=== PATIENT | female | born 2000 | race Caucasian/White ===

== ENCOUNTER 2023-04-05 03:50 | Inpatient (IN) | payer OTHER, MEDICAID, SELFPAY ==
[2023-04-05] VITALS (67 sets, daily range): BP systolic 100–147; BP diastolic 54–81; PULSE 62–150; RESP 14–15; TEMP 36.6–37; O2SAT 96–99; BMI 26.1
[2023-04-05 03:47] LABS: ROM Internal Control Test YES-OK TO RESULT pt. (Internal QC); ROM Patient Test POSITIVE (Negative); Record Kit Lot#, ROM+ K1374
[2023-04-05] MEDS: LACTATED RINGERS 500 ML 999 ML IV (03:55)
[2023-04-05] MEDS: Lactated Ringers 1,000 ML 200 ML IV ×2 (03:55→09:06)
[2023-04-05 04:09] LABS: Absolute Lymphocyte Count 1.95 X10^3/uL (0.83-4.51); Absolute Neutrophil Count 4.5 X10^3/uL (2.0-7.7); Basophil# 0.02 X10^3/uL; Basophil% 0.3 % (0-1); Eosinophil# 0.17 X10^3/uL; Eosinophils% 2.4 % (0-5); Hematocrit 36.2 % (37-47); Hemoglobin 11.5 g/dL (12.0-15.0); Lymphocyte # 1.95 X10^3/ul (0.83-4.51); Lymphocyte % 27.1 % (19-41); Mean Corp Hgb Conc 31.8 g/dL (32-36); Mean Corpuscular Hgb 25.9 pg (27.0-32.0); Mean Corpuscular Volume 81.5 fL (81-99); Mean Platelet Vol. 10.6 fl (6.2-12.0); Monocyte# 0.54 X10^3/uL; Monocyte% 7.5 % (0-10); NRBC Flagged by Analyzer 0 % (0-5); Neutrophil # 4.47 X10^3/uL (2.7-7.7); Neutrophil % 62.1 % (47-70); Platelet Count 257 K/mm3 (150-450); RBC Distribution Width CV 17.7 % (11.6-14.6); Red Blood Count 4.44 M/mm3 (4.2-5.4); White Blood Count 7.2 K/mm3 (4.4-11.0)
[2023-04-05 04:49] LABS: Syphilis Antibodies Non-reactive
[2023-04-05] MEDS: fentaNYL-bupivacaine (epidural) 100 ML BAG EPIDURAL (04:53)
--- NOTE | 2023-04-05 05:44 | NURSING ---
Addendum entered by Linda Hurtado 04/05/23 07:19: DOM talking about his and the pt's job. 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 Original Note: Pt and FOB have plans to place this baby for adoption. Parents already have adoptive parents picked and have meet them. Pt and state adoptive parents are very nice. Pt states adoptive parents will come after baby is born, once they have had time with him. Pt and FOB plan on calling the baby Don but understand that adoptive parents will change name after they go home. Parents seem to be accepting of this decision for adoption. Father of baby seems very on edge and jumpy, also saying odd comments such as I put a baby in her and this just wasn't what we planned. Father of baby states he is a recovering alcoholic. When DOM was out of room for epidural placement, this RN had a private conversation with pt. Pt stated that reason for adoption is because of finances mostly because DOM has only been sober for 5 months and his drinking has ruined him financially. Pt states she has spoken with social services director, case preparer and liner and therapist about this at length and feels its the right thing to do for the baby. DOM has two other children with someone else and is not the father of the pt's 6 year old boy.
--- NOTE | 2023-04-05 08:46 | PCM.HP.OB ---
HPI - General General Date of Admission: 04/05/23 HPI Narrative FAUSTO MCCORMICK, is a 22 F at 39.5 weeks gestation who presents with spontaneous rupture of membranes and contractions. Maternal Data Information JACQUELINE Calculator Estimated Delivery Date Method Current WG Current Estimate 04/07/23 Manual 39w 5d PFSH PFS Medical History (Updated 04/05/23 @ 20:30 by Vianca Rooney CNM) Anxiety Depression Headache Allergy/AdvReac Type Severity Reaction Status Date / Time No Known Allergies Allergy Verified 04/05/23 03:43 Surgical History History of appendectomy Hx of tonsillectomy Social History Smoking Status: Never smoker History Elective abortions Hx Para 1 Spontaneous abortions Hx # Term Pregnancies Ectopic pregnancies Hx # Pregnancies Multiple births # of living children Visit Details OB Flowsheet Initial Weight: Not Recorded Date <del>?</del> EGA Weight BP Urine Prot <del>?</del> Glucose FHR FuHt Pres Dilation <del>?</del> Effaced St Visit Note 04/05/23 <del>?</del> 39w 5d 162 lb 116/71 121/67 113/65 113/77 116/71 120/81 121/71 112/75 113/79 110/72 108/54 109/61 105/59 101/57 104/59 103/58 101/58 100/59 108/67 109/61 114/66 105/57 147/67 129/59 115/55 119/71 114/59 109/59 100/61 104/63 101/64 109/58 105/64 <del>?</del> <del>?</del> ROS Eyes Eyes: Denies blurry vision, change in vision or spots in vision ENT HEENT: Denies dizziness or headache(s) Cardiovascular Cardiovascular: Denies abdominal pain, chest pain or dyspnea Respiratory/Chest Respiratory/Chest: Denies cough, dyspnea, shortness of breath at rest or shortness of breath with exertion Gastrointestinal Gastrointestinal: Denies abdominal pain, diarrhea or vomiting Genitourinary Genitourinary: Denies change in urinary stream, difficulty urinating or dysuria Musculoskeletal Musculoskeletal: Reports none Integumentary Integumentary: Denies rash Neurologic Neurologic: Denies dizziness, headache(s), memory loss or weakness Psychiatric Psychiatric: Reports none Vital Signs Vital Signs Vital Signs: 04/05/23 03:18 04/05/23 03:18 04/05/23 03:17 Temperature Temperature Source Temporal Pulse Rate 80 Blood Pressure 116/71 BP Systolic 116 BP Diastolic 71 Pulse Ox 04/05/23 03:17 04/05/23 04:37 04/05/23 04:37 Temperature 98.0 F Temperature Source Pulse Rate 77 Blood Pressure BP Systolic BP Diastolic Pulse Ox 98 04/05/23 04:42 04/05/23 04:42 04/05/23 04:44 Temperature Temperature Source Pulse Rate 85 Blood Pressure 121/67 H BP Systolic 121 BP Diastolic 67 Pulse Ox 98 04/05/23 04:44 04/05/23 04:47 04/05/23 04:47 Temperature Temperature Source Pulse Rate 75 70 Blood Pressure BP Systolic BP Diastolic Pulse Ox 96 04/05/23 04:48 04/05/23 04:48 04/05/23 04:52 Temperature Temperature Source Pulse Rate 66 71 Blood Pressure 113/65 BP Systolic 113 BP Diastolic 65 Pulse Ox 04/05/23 04:52 04/05/23 04:54 04/05/23 04:54 Temperature Temperature Source Pulse Rate 74 Blood Pressure 113/77 BP Systolic 113 BP Diastolic 77 Pulse Ox 97 04/05/23 04:58 04/05/23 04:58 04/05/23 04:57 Temperature Temperature Source Pulse Rate 81 Blood Pressure 116/71 BP Systolic 116 BP Diastolic 71 Pulse Ox 98 04/05/23 05:03 04/05/23 05:03 04/05/23 05:02 Temperature Temperature Source Pulse Rate 75 Blood Pressure 120/81 H BP Systolic 120 BP Diastolic 81 Pulse Ox 98 04/05/23 05:07 04/05/23 05:07 04/05/23 05:08 Temperature Temperature Source Pulse Rate 76 Blood Pressure 121/71 H BP Systolic 121 BP Diastolic 71 Pulse Ox 98 04/05/23 05:08 04/05/23 05:12 04/05/23 05:12 Temperature Temperature Source Pulse Rate 74 80 Blood Pressure BP Systolic BP Diastolic Pulse Ox 99 04/05/23 05:14 04/05/23 05:14 04/05/23 05:18 Temperature Temperature Source Pulse Rate 67 Blood Pressure 112/75 113/79 BP Systolic 112 113 BP Diastolic 75 79 Pulse Ox 04/05/23 05:18 04/05/23 05:17 04/05/23 05:22 Temperature Temperature Source Pulse Rate 66 62 Blood Pressure BP Systolic BP Diastolic Pulse Ox 99 04/05/23 05:22 04/05/23 05:24 04/05/23 05:24 Temperature Temperature Source Pulse Rate 63 Blood Pressure 110/72 BP Systolic 110 BP Diastolic 72 Pulse Ox 99 04/05/23 05:27 04/05/23 05:27 04/05/23 05:30 Temperature Temperature Source Pulse Rate 72 Blood Pressure 108/54 L BP Systolic 108 BP Diastolic 54 Pulse Ox 98 04/05/23 05:30 04/05/23 05:34 04/05/23 05:34 Temperature Temperature Source Pulse Rate 72 65 Blood Pressure 109/61 BP Systolic 109 BP Diastolic 61 Pulse Ox 04/05/23 05:39 04/05/23 05:39 04/05/23 05:43 Temperature Temperature Source Pulse Rate 67 Blood Pressure 105/59 L 101/57 L BP Systolic 105 101 BP Diastolic 59 57 Pulse Ox 04/05/23 05:43 04/05/23 05:48 04/05/23 05:48 Temperature Temperature Source Pulse Rate 66 68 Blood Pressure 104/59 L BP Systolic 104 BP Diastolic 59 Pulse Ox 04/05/23 05:53 04/05/23 05:53 04/05/23 05:59 Temperature Temperature Source Pulse Rate 71 Blood Pressure 103/58 L 101/58 L BP Systolic 103 101 BP Diastolic 58 58 Pulse Ox 04/05/23 05:59 04/05/23 06:04 04/05/23 06:04 Temperature Temperature Source Pulse Rate 71 68 Blood Pressure 100/59 L BP Systolic 100 BP Diastolic 59 Pulse Ox 04/05/23 06:09 04/05/23 06:09 04/05/23 06:14 Temperature Temperature Source Pulse Rate 79 Blood Pressure 108/67 109/61 BP Systolic 108 109 BP Diastolic 67 61 Pulse Ox 04/05/23 06:14 04/05/23 07:19 04/05/23 07:19 Temperature Temperature Source Pulse Rate 79 79 Blood Pressure 114/66 BP Systolic 114 BP Diastolic 66 Pulse Ox 04/05/23 07:19 04/05/23 07:19 Temperature 98.2 F Temperature Source Temporal Pulse Rate Blood Pressure BP Systolic BP Diastolic Pulse Ox Weight Weight: 162 lb Body Mass Index (BMI) 26.1 Physical Exam Const alert and no apparent distress General Appearance: cooperative Orientation / Consciousness: awake Exam Limitations: no limitations HEENT normocephalic Eyes General Eye: normal appearance of both eyes Neck full ROM Chest inspection of chest normal Resp normal respiratory effort and normal air movement Effort and Inspection: symmetric chest movement Auscultation: clear to auscultation bilaterally Cardio regular rate GI soft to palpation, non-tender and non-distended Inspection: and other Back/Spine normal ROM Extremity full ROM, normal capillary refill and no calf tenderness Skin no rashes or lesions noted Neuro oriented x3 and CN's II-XII intact bilaterally Psych mental status grossly normal Labs Labs Labs: Blood Type O POSITIVE Antibody Screen NEGATIVE Hct 36.2 % (37-47) L Hgb 11.5 g/dL (12.0-15.0) L Syphilis Total Ab Non-reactive GBS positive Assessment & Plan (1) 39 weeks gestation of : (2) Spontaneous rupture of amniotic membranes: (3) with adoption planned: (4) Positive GBS test: (5) Depression: (6) Anxiety: (7) Chronic headache: PLAN: Plan Admit to labor and delivery Routine labs Start IV and run fluids per orders GBS positive- Start PCN IV and give every 4 hours until delivery Pain medication/epidural when indicated Anticipate Dr. Jon admitted patient- I am assuming management - Dr. Carrington is collaborating physician
[2023-04-05] MEDS: Penicillin G 3,000,000 Units 50 ML 100 UNITS IV (09:06)
[2023-04-05] MEDS: Oxytocin 10 UNITS/ML Vial IM (10:07)
[2023-04-05] MEDS: Oxytocin 15 Units/NS 250ml 15 UNITS/250 ML IV.SOLN 83 UNITS IV (10:07)
--- NOTE | 2023-04-05 10:30 | EX.PCM.OBRPT ---
Assessment & Plan (1) (spontaneous vaginal delivery): (2) Perineal laceration, second degree, delivered: (3) with adoption planned: (4) Anxiety: (5) Depression: (6) Chronic headache: Maternal Data Information JACQUELINE Calculator Estimated Delivery Date Method Current WG Current Estimate 04/07/23 Manual 39w 5d Vaginal Delivery Maternal Presentation Maternal Presentation: Spontaneous Rupture of Membranes Maternal Presentation: at 39.5 weeks gestation with spontaneous rupture of membranes and contractions. Type of Induction: Pitocin (Augmentation) Operative Information Date of Procedure: 04/05/23 Pre-Operative Diagnosis: Term gestation, Spontaneous rupture of membranes Post-Operative Diagnosis: , live male infant Surgery / Procedure Performed: Spontaneous Vaginal Delivery Type of Anesthesia: Epidural Drain: [place]me[place] to straight drain Estimated Blood Loss: 250 Time of Delivery: 10:05 Findings Description of Procedure: Patient progressed to complete dilation. Provided bedside support during pushing. With good maternal effort, head delivered followed immediately by anterior shoulder and remainder of infant body with minimal traction. Vigorous male placed on maternal abdomen and attended to by nursing staff. Pitocin IM x 1 given for active management of the third stage of labor. 3 vessel cord clamped and cut by patient after delay and infant placed skin to skin with patient. Cord blood collected and sent. Pitocin IV running. Placenta delivered spontaneously and intact. Second degree laceration repaired in usual fashion with Vicryl 3-0 rapid. Hemostasis obtained. Fundus firm and 1 below U. EBL 250 cc, APGARS 8/9. Patient has plans for adoption and is working with [facility] adoption services. Dr. Carrington notified of delivery. Presentation: Vertex Amniotic Membrane Rupture Type: Spontaneous Time of Membrane Rupture: 129 Amniotic Fluid Description: Clear Placental Delivery Description: Spontaneous Placenta Disposition: [facility] Cord Vessel Description: 3 Vessels Cord Entanglement: None A Gender: Male (1 minute): 8 (5 minute): 9 Delayed Cord Clamping: Yes Post Vaginal Delivery Medications Given After Delivery: IV Pitocin and IM Pitocin Episiotomy Description: None Laceration: 2nd degree Complication Complications: None
[2023-04-05] MEDS: Naproxen 500 MG Tablet PO ×2 (11:59→20:21)
--- NOTE | 2023-04-05 15:00 | CASEMGMT ---
Social Work Assessment Labor and Delivery Unit Patient Address: Patient phone: Date of Referral: 04.05.2023 Time of Referral: 411 Referred By: Danna Wall Date of Intervention: 04.05.2023 Time of Intervention: Approximately [id number] Reason for Referral: Father of baby (FOB) history of alcohol use issues. Mother of baby (MOB) and FOB making an adoption plan for the baby. History obtained from: MOB and medical records. FOB present for a short time and did participate during that time. Household composition: MOB, MOB's 20 year old sister Steph, and MOB's 6 year old son. MOB reports home situation is safe and has no concerns. Patient's parent/guardian status: MOB is a 24 year old single female, involved with the FOB Surinder Varner who is age 39 for the last year and a half. MOB and FOB are reported as together but do not live together. MOB denies any domestic violence or safety concerns with the FOB. Infant is the first child for MOB and FOB together. to be named Don, born on 04.[birth year]. MOB as a son Wale from a prior relationship. Wale is 6 years old. FOB reports to have a 12 year old and a 3.5 year old. *MOB and FOB do report intent to make an adoption plan for infant Don. Medical History: MOB is G2, P1 to 2 after delivering Don. care started later at 17 weeks and visit were spotty until 30 weeks when MOB started to attend visits regularly. weighted 9 pounds 4 ounces at . Apgars 8 and 9 at 1 and 5 minutes of life. MOB providing breast milk to while infant is in the hospital.. Educational Status: MOB reports to have a college degree in history and education. No concerns with literacy. FOB is also reportedly college educated. 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 Transportation: MOB reports to drive and has no concerns. Programs/Agencies Involved: [facility] adoption [facility], Taisha Rhodes is the adoption network security officer working with this family. JFS for medical coverage. Shelli Villegas at [employer]. Children Services/Legal Issues: None reported. Behavioral Health Issues: Mental Health History: MOB reports history of depression and anxiety. Denies any history of SI or attempts. No reports of harm to others. Reports some trauma history growing up, describing that MOB's mother a Mean drunk and that none of the children have fully forgive for this. MOB reports has been in and out of counseling since the age of 8. Reports just established counseling again during this , and intend to maintain in the timeframe. Substance Use History: Denies any substance use history for self. Drug Screens: None noted. Family/Social Stressors: Unplanned , with MOB considering all options available. MOB did decide on making an adoption plan, and reports financial stress/stability issue as primary reason for making the adoption plan. FOB with reported 15 year history of alcohol use issues, including past DUI's, gambling issues when drinking and recent financial hardship due to gambling issues. FOB has been to inpatient rehab during this and MOB reports FOB is now 4 months sober. Support Systems: MOB reports to have good support from MOB's grandmother, sister Steph, and also the FOB. Reports Brayden plans to stay with MOB for a week or so after leaving the hospital, so as to provide support. MOB's sister Avril Mackenzie is coming in from [place] in a few weeks to visit as well. ASSESSMENT: Met with MOB an FOB in room, introducing to self and social work role. FOB sleepy but woke up and participated in conversation. MOB appearing reserved with FOB, and uncertain initially want relational status was. Asked FOB to leave for private conversation, which FOB agreed to and stated I understand. MOB more talkative, though affect remind the same, mostly constricted. MOB was attentive to , held baby the entirety of social work visit, and appeared to be bonding as evidenced by finger tipping, smiling at and talking to baby. MOB openly cried during SW visit, mostly when discussing plan to make an adoption plan, and feeling as if this is the only viable option to allow for infant to have the things he needs in life. This information writer gently broached how long MOB wants to stay hospital, as well as whether MOB has thought about day of discharge and what this will look like as far as handing the baby off. MOB became quite emotional during these parts of discussion, indicating would like to stay as long as possible with the baby and that can't imagine right now how will say goodbye/leave baby when leaving the hospital. While MOB indicated these feelings, also indicates feeling that adoption is MOB's only choice. Much emotional support, supportive listening and reflection offered to the MOB. Let MOB know staff is here to support the MOB, and FOB, during hospital stay. MOB expressed appreciation for support, and expressed feeling that staff has been kind, supportive and caring. Adoption Planning: MOB is working with [facility] adoption. This information writer was in communication with [facility] prior to delivery. Copy of plan, provided by [facility] on the chart. MOB signed a release of information to [employer] [facility] for the baby's record. MOB also signed the [facility] Adoptive Infant checklist, which is placed in MOB's and Infant's chart. MOB reports has met, and had dinner with the prospective adoptive parents; knows first and last names. MOB reports plan for semi-open to open adoption. MOB reports plan to let the prospective adoptive parents visit, but does not want them to spend the night. PLAN:Social work to follow and assist for support and adoption planning. Plan to make contact with Taisha at [facility], as to when adoption paperwork can be signed. No other services requested or indicated. -ALICIA Moreno, PILOT CAN ROUTER
[2023-04-05] MEDS: Benzocaine/Lanolin/Aloe Vera 1 SPRAY EACH TOPICAL (16:55)
[2023-04-05] MEDS: Acetaminophen 500 MG Tablet 1000 MG PO (16:56)
--- NOTE | 2023-04-05 18:00 | CASEMGMT ---
Social Work Labor and Delivery Unit While meeting with mother of baby (MOB) today: MOB signed release of information for [facility] adoption agency for the . [facility] adoptive and checklist completed with MOB's input. Copy of plan provided by [facility] [employer], along with hospital paperwork placed on both MOB's and 's charts. Release of information MOB signed with [facility] also placed on MOB's chart. Collaboration with Taisha Shankar from [facility] adoption agency ([phone]) and updated to how mother of baby (MOB) and infant are doing since delivery, and regarding MOB's reported intent to continue with adoption plan. Acknowledged however that MOB appears to be having heightened emotions regarding the reality of moving forward with the plan. Discussed timeframe for custody paperwork to be signed. Taisha to discuss further with the MOB. Received call back from Taisha at the adoption agency who reports plan for signing of custody paperwork on 04/08/2023. MOB does want to continue being present with the infant for the duration of hospital stay. Spoke with MOB in room and confirmed MOB's intent with plan for adoption. MOB does also indicate appreciation for being able to have time with the infant before having to make decision about signing paperwork. Emotional support provided. Provided MOB with information on mood and anxiety disorders and several birthmother support groups and retreat information for after care support in the community. Updated OB provider, bag turner, and nursing staff. Updated charge entry that should MOB decide to want to leave the hospital this weekend, to call social work as will need to ensure that appropriate paperwork is signed before MOB leaves the hospital. 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 Social work will continue to follow and assist. -SUMIT Moreno, TERMITE TREATER *This note was generated with Cytherisation software. It may contain incorrect words, spelling, and punctuation that were not noted in review of the chart prior to signing*
[2023-04-06] VITALS (8 sets, daily range): BP systolic 107–116; BP diastolic 54–70; PULSE 62–83; RESP 15–18; TEMP 36.6–36.8; O2SAT 96–98
--- NOTE | 2023-04-06 09:18 | PCM.PN.OB ---
Subjective Subjective Patient seen at bedside. Skin to skin with . with minimal support. Ambulating and has voided but feels like it is difficult for bladder to relax. Denies pain. Reports being unsure about adoption plan at this time. Support provided Objective Data Objective Data Vital Signs: Vital Signs Temp Pulse Resp BP Pulse Ox O2 Del Method 98 F 81 16 116/64 96 Room Air 04/06/23 07:42 04/06/23 07:42 04/06/23 07:42 04/06/23 07:42 04/06/23 07:42 04/06/23 07:42 Oxygen Delivery Method Room Air Weight: 162 lb Body Mass Index (BMI) 26.1 Intake & Output: Intake and Output for Last 24 Hours 04/04/23 04/05/23 04/06/23 23:59 23:59 23:59 Intake Total 2101.67 / 2101.67 Output Total 1000 / 1000 Balance 1101.67 / 1101.67 Lab / Micro Data Result Diagrams: 04/05/23 03:55 ROS Eyes Eyes: Denies blurry vision, change in vision or spots in vision ENT HEENT: Denies dizziness or headache(s) Cardiovascular Cardiovascular: Denies abdominal pain, chest pain or dyspnea Respiratory/Chest Respiratory/Chest: Denies cough, dyspnea, shortness of breath at rest or shortness of breath with exertion Gastrointestinal Gastrointestinal: Denies abdominal pain, diarrhea or vomiting Genitourinary Genitourinary: Denies change in urinary stream, difficulty urinating or dysuria Musculoskeletal Musculoskeletal: Reports none Integumentary Integumentary: Denies rash Neurologic Neurologic: Denies dizziness, headache(s), memory loss or weakness Physical Exam Const alert and no apparent distress General Appearance: cooperative and comfortable Exam Limitations: no limitations HEENT normocephalic Eyes General Eye: normal appearance of both eyes Neck full ROM General: normal visual inspection Chest Chest: symmetrical chest wall rise Resp normal respiratory effort and normal air movement Effort and Inspection: symmetric chest movement Auscultation: clear to auscultation bilaterally Cardio regular rate and regular rhythm GI normal to inspection, nondistended, normoactive bowel sounds Back/Spine normal ROM Extremity full ROM and no calf tenderness General Extremity: normal exam except as noted Skin no rashes or lesions noted Neuro CN's II-XII intact bilaterally Psych mental status grossly normal Assessment & Plan (1) Perineal laceration, second degree, delivered: (2) (spontaneous vaginal delivery): (3) with adoption planned: (4) Care and examination of lactating mother: PLAN: Plan PPD 1 Routine care Ambulate and voiding today Pain control Emotional support D/C tomorrow and will be hotel status- baby not discharged until Saturday
[2023-04-06] MEDS: Acetaminophen 500 MG Tablet 1000 MG PO (17:26)
[2023-04-07 01:19] VITALS: BP 100/59; PULSE 61; O2SAT 96
[2023-04-07 01:20] VITALS: BP 100/59; PULSE 62; RESP 16; O2SAT 96
[2023-04-07 07:37] VITALS: BP 112/64; PULSE 73; RESP 16; TEMP 37.4; O2SAT 96
--- NOTE | 2023-04-07 11:02 | PCM.PN.OB ---
Subjective Subjective Patient seen at bedside. Ambulating and voiding without difficulty. Denies headache, dizziness, CP, or SOB. Lochia decreasing. with minimal support. Denies pain. Patient still contemplating adoption. Objective Data Objective Data Vital Signs: Vital Signs Temp Pulse Resp BP Pulse Ox O2 Del Method 99.3 F H 73 16 112/64 96 Room Air 04/07/23 07:37 04/07/23 07:37 04/07/23 07:37 04/07/23 07:37 04/07/23 07:37 04/07/23 07:37 Oxygen Delivery Method Room Air Weight: 162 lb Body Mass Index (BMI) 26.1 Intake & Output: Intake and Output for Last 24 Hours 04/05/23 04/06/23 04/07/23 23:59 23:59 23:59 Intake Total 2101.67 / 2101.67 Output Total 1000 / 1000 Balance 1101.67 / 1101.67 Lab / Micro Data Result Diagrams: 04/05/23 03:55 ROS Eyes Eyes: Denies blurry vision, change in vision or spots in vision ENT HEENT: Denies dizziness or headache(s) Cardiovascular Cardiovascular: Denies abdominal pain, chest pain or dyspnea Respiratory/Chest Respiratory/Chest: Denies cough, dyspnea, shortness of breath at rest or shortness of breath with exertion Gastrointestinal Gastrointestinal: Denies abdominal pain, diarrhea or vomiting Genitourinary Genitourinary: Denies change in urinary stream, difficulty urinating or dysuria Musculoskeletal Musculoskeletal: Reports none Integumentary Integumentary: Denies rash Neurologic Neurologic: Denies dizziness, headache(s), memory loss or weakness Physical Exam Const alert and no apparent distress General Appearance: cooperative and comfortable Exam Limitations: no limitations HEENT normocephalic Eyes General Eye: normal appearance of both eyes Neck full ROM General: normal visual inspection Chest Chest: symmetrical chest wall rise Resp normal respiratory effort and normal air movement Effort and Inspection: symmetric chest movement Auscultation: clear to auscultation bilaterally Cardio regular rate and regular rhythm GI normal to inspection, nondistended, normoactive bowel sounds Back/Spine normal ROM Extremity full ROM and no calf tenderness General Extremity: normal exam except as noted Skin no rashes or lesions noted Neuro CN's II-XII intact bilaterally Psych mental status grossly normal Assessment & Plan (1) Care and examination of lactating mother: (2) Perineal laceration, second degree, delivered: (3) (spontaneous vaginal delivery): (4) Depression: (5) Anxiety: (6) with adoption planned: PLAN: Plan PPD 2 Routine care support Emotional support provided- patient unsure of adoption plan Start Zoloft 50 mg PO daily- patient has a history of success while taking Zoloft for depression D/C home but remain hotel status at this time Social work involved and will be coming to speak with patient today
--- NOTE | 2023-04-07 11:15 | PCM.DC ---
Discharge Instructions Diet Discharge Diet: No restrictions Activity Discharge Activity: Return to Normal Activity, May Shower and May Take a Tub Bath May resume sexual activity in: 4-6 weeks Weight Bearing Status: Weight bearing as tolerated Dressing / Incision Call your doctor if you observe: Fever of 101 or Higher, Inability to urinate, Using more than 1 pad per hour, Shortness of breath, Dizziness, Swelling in the ankles, Chest pain, Calf discomfort and Uncontrolled pain Follow Up Care Please Follow Up With: Vianca Rooney CNM When: Within 10 days Test Results: Test results from this visit will be discussed in further detail at your follow-up appointment, if applicable. Discharge Plan Admission Admit Date/Time: 04/05/23 03:50 Primary Reason for Your Visit: Labor and Delivery Attending Provider: Vianca Rooney Primary Care Provider: JOSE ANTNOIO SCOTT Discharge Orders/Prescriptions Prescriptions: New sertraline 50 mg Tablet 50 mg PO DAILY Qty: 30 2RF Referrals / Follow Up: JOSE ANTONIO SCOTT [Other] Vianca Rooney CNM [Med Staff - [facility] Practice Prof] - Disposition Disposition (needs filled in before D/C Order can be placed): Home, Self Care
[2023-04-07] MEDS: Sertraline 50 MG Tablet PO (11:59)
[2023-04-07 13:52] VITALS: BP 114/63; PULSE 80; RESP 16; TEMP 37.1; O2SAT 98
[2023-04-07 13:53] VITALS: PULSE 79; O2SAT 96
--- NOTE | 2023-04-07 14:30 | NURSING ---
Phone call placed to Wes Akins-social work on update of pt status.
[2023-04-07] MEDS: Naproxen 500 MG Tablet PO (17:35)
--- NOTE | 2023-04-07 17:51 | NURSING ---
Addendum entered by Giovanna Contreras 04/07/23 19:33: At 1830 went into pts room, pt seemed off. Tearful. RN sat on bed with patient and asked what was going on. Pt made list of what she would need to bring the babe home. States that she just feels overwhelmed and wants to make the right choice. Pt told RN that she looked at babkeven and told him that he was going to be going with some other people tomorrow and that he needed and would be strong, and babe smiled. Then she said she just felt like no one will ever love him more then her. She just held babe tighter and he smiled again. Support offered and pt very tearful. Pt very thankful for RN's time today of sitting with her and talking with her. RN then changed the subject to Wale and pt talked about him for the next 20 minutes. 1919- Brayden arrived on unit. 1939 Brayden leaves the unit. This RN in to see if pt is okay. Pt states that Brayden's not coming back and that he's upset with her. She said that he told her she was being unfair and manipulating him and that he can't be around her. and then left. Pt states that he wont be back tonight. Original Note: This RN spent significant amount of shift in with pt and babe. Pt alone all day and very tearful. Started this morning sitting with pt and talking. Tearful with instructor bridge exam with mention of adoption taking place on 04/08/23. RN sat with pt for 45 minutes talking about how she was feeling. Pt states repetitively that she just doesn't know how she can leave without him. States that she wants him to have a good life and that she doesn't want to be selfish and not give him to the adoptive parents because of her own issues. When asked about Brayden, she stated that he left last night and she doesn't know if/when he is coming back. Explained that they got in an argument about her having doubts of the adoption. Pt remains tearful. This RN offered support- pt receptive. When RN asked about pts support system she commented that she has support from her sisters, Avril Mackenzie and Steph, and her grandmother. Pt states that her sister Avril Mackenzie offered to take baby Don if Landy didnt think she could raise him but didnt want to give him up for adoption, pt was appreciative of that and said that Avril Mackenzie's even emailed her and said that they would do whatever she needed them to. Avril Mackenzie also told Steph that she would send her some money to go by a carseat for the baby if Landy kept the baby. Pt also voiced concerns of having to do this alone and states that she knows Brayden will likely not help her with raising the baby. Later in the day, pt called tax attorney about her feelings on the adoption. When tax attorney asked her when you leave the hospital, do you see yourself leaving with your baby or not? She answered with leaving with him and tax attorney said that is okay. Caseworkers have been involved per Landy. She was told the adoptive parents wanted her to know that they don't want her to feel any pressure or feeling like she's disappointing them if she doesn't go through with the adoption. Pt states that made her feel better and gave her some peace. Also states that Brayden will be coming back at some point but doesn't know when. Pt still not voicing going through with adoption or keeping babe. Just states that she wants more. Pt scored 17/19 of PHQ9, Viki was made aware and pt was not having any suicidal thoughts. Handouts given.
--- NOTE | 2023-04-08 17:30 | CASEMGMT ---
Social Work Labor and Delivery Unit This chief writer received phone call on 04.07.23 from GHULAM Heredia regarding update on how mother of baby (MOB) was doing regarding intent for adoption planning. RN reports MOB with heightened emotions throughout the day, and vacillating about intent on moving forward with adoption plan. RN also reports MOB's PHQ-9 was a score of 17. RN reports antidepressant being started for MOB. MOB denied any thoughts of suicide or self harm. Interventions occurring on 04.08.23,intermittenly throughout the day starting at approximately 0900: MOB's adoption car mover, Taisha Rhodes from [facility] to hospital to meet with MOB, to discuss plans. This chief writer updated Taisha to how MOB was doing, and that baby is ready for discharge. Taisha to MOB's room to discuss and then this chief writer called into MOB's room. MOB shared with this chief writer decision to forego adoption plan and take baby home to parent. MOB appearing relaxed when relaying decision to this chief writer, smiling, holding baby, and appearing to bradford with baby. Briefly discussed with MOB that can gather some resources for MOB for [facility] where MOB lives. Briefly touched on [facility] and [facility] [place]. MOB reports to have some baby items in storage. Updated nursing staff and honey producer. Me with MOB and reviewed PHQ9 depression screening. MOB reports has restarted antidepressant and plans to remaining this. MOB is already in counseling with Shelli Villegas, and intends to remain in counseling. MOB acknowledges heightened emotions in relation to struggle about plan for adoption versus parenting, and feeling relief in decision to parent. Back to MOB's room to check in and MOB on phone with Taisha (on speakerphone). MOB appearing tearful. Sat down with MOB, joining conversation. MOB holding baby, and discussed with Taisha and this chief writer questioning decision to parent. MOB verbalized various reasons for decision to make an adoption plan, including concern that not feeling equipped to parent an infant alone, and that current life situation is sometimes a struggle financially. MOB voiced the prospective adoptive parents would be able to provide in all ways, as well as would be able to show what it means to have two parents who love each other and can model such to the . Much supportive listening offered, emotional support that this is not an easy decision. After MOB talked though thoughts, MOB voiced that wants to sign temporary custody to [facility] for adoption planning. Note, some baby items for home going had been delivered to MOB's room, donated to MOB. This chief writer removed donated items from the room, so as to decrease any heightened emotions associated with items. Updated nursing. Received call from repair department supervisor at [facility], Chloé Fisher. Chloé collaborated with this chief writer, inquiring whether this chief writer felt MOB understood the next steps after temporary custody would be to sign permanent custody. Discussed that MOB seems to understand the process, but adjusting and coming to terms with the reality of things is another matter. Per Chloé, due to MOB having so many varying emotions, [facility] staff (including supervisors) will be discussing with MOB her intention and wishes. Chloé reports [facility] will call this chief writer after meeting for an update. Updated nursing staff, encouraging that discussion from this point be focused on care of baby rather than MOB's decision making, as MOB does appear to be having some varying emotions and thoughts on her decision making. This chief writer received notice from nursing, after discharged, that MOB decided to take baby home with a plan to care for baby for 48 hours, then make final decision. Plan: discharged home with MOB. [facility] Ad[facility] following in the community. MOB does have supports in place for mental health/ depression via medication and counseling. -ALICAI Moreno, DIRECTOR OF INDUSTRIAL RELATIONS
== END 2023-04-07 19:00 | disposition home or self-care (01) | DRG 807 ==
LOC: WPOUT 03:52 → WP 03:52
PROVIDERS: Obstetrics & Gynecology; Admitting Provider Advanced Practice Midwife; Referring Provider Advanced Practice Midwife; Visit Provider Advanced Practice Midwife
DX: O70.1 Second degree perineal laceration during delivery (principal); Z37.0 Single live birth; O99.344 Other mental disorders complicating childbirth; F32.A Depression, unspecified; F41.9 Anxiety disorder, unspecified; Z3A.39 39 weeks gestation of pregnancy
CPT/HCPCS: 59025; 59050; 84112; 85025; 86780; 86850; 86900; 86901; 99221; J7120; G0378

== ENCOUNTER 2023-07-25 10:22 | Day surgery (SDC) | payer OTHER, MEDICAID, SELFPAY ==
--- NOTE | 2023-07-18 12:25 | PCM.HP.BLA ---
History and Physical Date of Admission: 07/26/23 HPI: The patient is a 23 year old female presenting for pre-operative visit. She is scheduled for laparoscopic bilateral salpingectomy, for sterilization on 07/25/23. Procedure discussed along with risks, benefits and complications. Other alternatives discussed for management. Consent form signed? Yes. ? ? PAST MEDICAL HISTORY PAST MEDICAL HISTORY Diagnosis Date ? Anxiety and depression ? ? Chlamydia ? ? treated ? Chronic headaches ? ? Closed dislocation of patella 06/29/2010 ? Closed fracture of one or more phalanges of foot 12/12/2011 ? Eating disorder, unspecified 09/29/2009 ? Insomnia 06/11/2012 ? Other closed fractures of distal end of radius (alone) 11/30/2010 ? Unspecified asthma(493.90) ? ? albuterol inhaler prn ? ? PAST SURGICAL HISTORY PAST SURGICAL HISTORY Procedure Laterality Date ? APPENDECTOMY ? 2010 ? APPENDECTOMY HX ? ? ? COLONOSCOPY ? 2008 ? EGD ? 2008 ? TONSILLECTOMY & ADENOIDECTOMY <AGE 12 ? 2004 ? ? ? CURRENT MEDICATIONS Current Outpatient Medications Medication Sig Dispense Refill ? sertraline (ZOLOFT) 50 mg tablet Take 1 tablet by mouth once daily. 90 tablet 1 ? drospirenone, contraceptive, (SLYND) 4 mg (28) tabet Take 1 tablet by mouth once daily. (Patient not taking: Reported on 06/14/2023) 28 tablet 2 ? ferrous sulfate 325 mg (65 mg iron) tablet TAKE 1 TABLET BY MOUTH EVERY OTHER DAY (Patient not taking: Reported on 06/14/2023) 45 tablet 3 ? vit,calc76/iron/folic (PNV 29-1 ORAL) Take 1 tablet by mouth. (Patient not taking: Reported on 06/14/2023) ? ? ? No current facility-administered medications for this visit. ? ? ALLERGIES: Patient has no known allergies. ? PERSONAL HISTORY: SOCIAL HISTORY Social History ? Tobacco Use ? Smoking status: Never ? Smokeless tobacco: Never Vaping Use ? Vaping Use: Never used Substance Use Topics ? Alcohol use: No ? Drug use: No ? FAMILY HISTORY: FAMILY HISTORY FAMILY HISTORY Problem Relation Age of Onset ? Headache Mother ? ? migraine ? Coronary Artery Disease Father 73 ? heart attack ? GI Sister ? ? celiac disease ? Headache Sister ? ? migraine ? Glaucoma Maternal Grandmother ? ? ? REVIEW OF SYMPTOMS: GENERAL: denies fevers or chills ENDOCRINOLOGY: has not been on steroids Cardiology : denies palpitations or chest pain Respiratory: denies SOB or cough Hematology: denies history of prolonged bleeding or easy bruising or VTE Allergy: Denies history of personal or family history of allergy to anesthesia ? ? PHYSICAL EXAMINATION: ? VITALS: Last menstrual period 07/01/2022, currently . ? GENERAL: The patient is well nourished, well hydrated in no acute distress. , The patient is oriented to time, place, and person. NECK: Supple. No lynphadenopathy, normal thyroid, no thyromegaly. LUNGS: Clear to auscultation bilaterally. no wheezes, rhonchi or rales HEART: Regular rate and rhythm, Normal heart sounds, and No murmurs or gallops ? IMPRESSION: sterilization request ? PLAN: The risks/benefits/alternatives and personal involved for the planned laparoscopic bilateral salpingectomy were reviewed with the patient. Her questions were answered to her satisfaction and she desires to proceed. Consent was signed. I reviewed with her postop instructions and expectations. ? ? I have reviewed and updated past medical and surgical history, medications and allergies Assessment & Plan Assessment/Plan (1) Sterilization:
[2023-07-25] VITALS (8 sets, daily range): BP systolic 103–113; BP diastolic 64–75; PULSE 60–82; RESP 16; TEMP 36.6–36.8; O2SAT 96–100; BMI 20.2
[2023-07-25 10:52] LABS: Internal QC Validated? YES +Cl - CLEAR BKGD; Pregnancy, Urine Negative Negative
[2023-07-25] MEDS: Lactated Ringers 1,000 ML 15 ML IV (10:56)
[2023-07-25] MEDS: Acetaminophen 500 MG Tablet 1000 MG PO (10:56)
[2023-07-25] MEDS: Ketorolac 30 MG/ML Syringe IV (10:56)
[2023-07-25 11:07] LABS: Hematocrit 41.7 % (37-47); Hemoglobin 13.5 g/dL (12.0-15.0); Mean Corp Hgb Conc 32.4 g/dL (32-36); Mean Corpuscular Hgb 29.1 pg (27.0-32.0); Mean Corpuscular Volume 89.9 fL (81-99); Mean Platelet Vol. 8.8 fl (6.2-12.0); Platelet Count 325 K/mm3 (150-450); RBC Distribution Width CV 13.9 % (11.6-14.6); RBC Distribution Width SD 45.6 fl (35.1-43.9); Red Blood Count 4.64 M/mm3 (4.2-5.4); White Blood Count 5.9 K/mm3 (4.4-11.0)
[2023-07-25 11:14] LABS: Prothrombin Time (Protime)PT. 13.7 SECONDS (11.7-14.9)
--- NOTE | 2023-07-25 11:50 | FALS_PTH ---
PATIENT: FAUSTO MCCORMICK LOC: [facility] [place] U#:[id number] AGE/SX: 23/F ROOM: RE07/25/[address]: Dr. Renee Nur MD : 2000 BED: DIS: 07/25/2023 SPEC #: [id number] RECD: 07/25/23 14:39 STATUS: ALLAN MONZON #: [id number] EKATERINA: 07/25/23 11:[address]: Renee Nur DEPT: SURGICAL PATHOLOGY RECD BY: Soren Coe Tissues: Fallopian tube Procedures: Surgery Specimen Level IV HEADER OPERATION: Laparoscopic salpingectomy PRE-OP DIAGNOSIS: Sterilization TISSUE SUBMITTED: Bilateral fallopian tubes MICROSCOPIC DIAGNOSIS Right and left fallopian tubes, bilateral salpingectomies: Complete cross-sections of two fallopian tubes. Benign paratubal cysts of both fallopian tubes. AM:kathi 07/29/2023 MICROSCOPIC DESCRIPTION Slides are reviewed. GROSS DESCRIPTION Received in fixative is one container labeled with the patient's name and designated bilateral fallopian tubes. The specimen consists of fallopian tubes received in three fragments ranging in length from 2.5 to 6.0 cm. The average diameter of the fragments is 0.7 cm. Both fallopian tubes have normal fimbriated ends. No mass lesions are identified. Casework Manager sections are submitted in two cassettes as follows: 1 - one fallopian tube, 2 - the other fallopian tube. / AM:kathi 07/26/2023 TC:5 CPT: 88207 x2
--- NOTE | 2023-07-25 12:36 | DCINST_ITS ---
Discharge Instructions Diet Discharge Diet: No restrictions Activity May resume sexual activity in: 1 week Dressing / Incision Call your doctor if your incision/area has: Sudden Increased Bleeding and Foul Smelling Discharge Call your doctor if you observe: Fever of 101 or Higher Cleanse incision/area with: Soap & Water (Your incisions have skin glue and it can get wet. Leave on until it falls off) Follow Up Care Please Follow Up With: Renee Nur MD When: As needed only. Call [phone]. Send a [facility] message for nonurgent questions. Test Results: Test results from this visit will be discussed in further detail at your follow- up appointment, if applicable. Discharge Plan Admission Attending Provider: Renee Nur Primary Care Provider: JOSE ANTONIO SCOTT Discharge Orders/Prescriptions Prescriptions: No Action sertraline 50 mg Tablet 50 mg PO DAILY Qty: 30 2RF Referrals / Follow Up: JOSE ANTONIO SCOTT [Other] Disposition Disposition (needs filled in before D/C Order can be placed): Home, Self Care
--- NOTE | 2023-07-25 12:39 | PCM.OPRPT ---
Problems Associated Problem List Diagnoses (1) Sterilization: Report of Operation Date of Procedure: 07/25/23 Pre-Operative Diagnosis: Sterilization Post-Operative Diagnosis: same Surgery/Procedure Performed:: Laparoscopic bilateral salpingectomy Description of Surgical Findings:: Normal uterus, tubes, ovaries and cervix Surgeon: Renee Nur swing manager: None Type of Anesthesia: General Anesthesiologist: Surinder Mckinney Special Medications: none Specimen's removed: bilateral fallopian tube Drains: none Estimated Blood Loss (mL): 10 Fluids Replaced: 800 Description of Procedure: The patient was taken to the operating room where she was prepped and draped in the dorsolithotomy position. A weighted speculum was placed in the vagina and the anterior lip of the cervix was grasped with a tenaculum. The Celeste uterine manipulator was placed and the remainder of the instruments were removed from the vagina. Attention was turned to the abdomen. All port sites were infiltrated with 0.5% Marcaine before skin incisions were made. A 5 mm [intraumbilical] incision was made. The anterior abdominal wall was tented up with 2 towel clamps while a 5 mm blade less trocar and sleeve were [directly inserted]. Intraperitoneal placement was confirmed with the laparoscope. The pneumoperitoneum was created and the underlying abdominal contents were intact. The patient was placed in Trendelenburg. Right and left lower quadrant ports were placed under direct visualization lateral to the inferior epigastric vessels. The bowel was swept away and the above findings were noted. The Enseal device was used to clamp seal and transect the antimesenteric portions of the right tube to the cornual insertion of the uterus. The tube was amputated from the uterus and the pedicles were all confirmed to be hemostatic. The same procedure was performed on the contralateral side. The specimens were brought out through a 5 mm port. The pedicles were again examined and found to be hemostatic. The lateral ports were removed under direct visualization and no active bleeding was noted. The pneumoperitoneum was released. The skin incisions were closed with Monocryl suture in a subcuticular fashion and skin glue . The vaginal instruments were removed and the vaginal sweep was completed by me. The procedure was performed by me with assistance. All sponge and needle counts were correct and the patient was taken to the recovery room in stable condition. Grafts/Implants Used: none Procedure Start Time: 12:50 Procedure Stop Time: 13:03 Complications none Admit VTE Documentation VTE Present on Admission: No VTE Mechan Device Prophylaxis: SCD's VTE Pharm Prophylaxis ordered?: No Reason prophylaxis not ordered:: Procedure Not Indicated
[2023-07-25] MEDS: Bupivacaine 0.5% PF 10 ML VIAL (13:03)
== END 2023-07-25 14:59 | disposition home or self-care (01) ==
LOC: SDC 10:33 → AC 10:34
PROVIDERS: Anesthesiology; Referring Provider Obstetrics & Gynecology; Visit Provider Obstetrics & Gynecology
PROC: (CPT 58661; principal; 2023-07-25 11:35)
DX: Z30.2 Encounter for sterilization (principal)
CPT/HCPCS: 58661; 00840; 81025; 85027; 85610; 85730; 88302; 88305; J7120; C1760; J2405